=== PATIENT | female | born 1945 | race Two or more races ===

== ENCOUNTER → 2022-02-01 | Emergency (ER) | payer OTHER ==
[~2022-02-01] VITALS: Ht 157.5 cm; Wt 85.7 kg
[~2022-02-01] MED LIST: EVISTA60 MG; LOSARTAN POTASS50 MG; SIMVASTATIN5 MG
== END | disposition home or self-care (01) ==
LOC: ER 00:39
DX: M79.661 Pain in right lower leg (principal)